=== PATIENT | female | born 1975 ===

== ENCOUNTER 2018-01-09 18:48 | Observation (INO) | payer OTHER ==
[2018-01-09] MEDS ORDERED: Piperacillin/Tazobact 3.375 GM in Sodium Chloride 0.9% 100 ML IVPB STA (19:21)
[2018-01-09] MEDS ORDERED: Morphine 4 MG/ML VIAL ONE (19:42)
--- NOTE | 2018-01-09 20:11 | ED PDOC ---
HPI: Skin/Bite Injury Time Seen by Provider: 01/09/18 19:12 Chief Complaint (Nursing): Abnormal Skin Integrity Chief Complaint (Provider): Abnormal Skin Integrity History Per: Patient History/Exam Limitations: no limitations Onset/Duration Of Symptoms: Days (x1 week) Location Of Injury: Left: Buttock, Labia Additional Complaint(s): 42 year old female with no significant past medical history presents to the ED with Bartholins cyst on left labia onset 1 week. Patient reports she is being treated by her OBGYN. She states her swelling has improved recently resolved but has now traveled to the left buttocks. Patient is taking Motrin for pain. She has chills and sweats but denies fever, history of dm, or any other medical complaints. PMD: Dr. Talley Past Medical History Reviewed: Historical Data, Nursing Documentation, Vital Signs Vital Signs: Last Vital Signs Temp 99 F 01/09/18 23:57 Pulse 109 H 01/09/18 23:57 Resp 20 01/09/18 23:57 BP 142/67 01/09/18 23:57 Pulse Ox 99 01/10/18 00:42 - Medical History PMH: No Chronic Diseases - Surgical History Surgical History: No Surg Hx - Family History Family History: States: No Known Family Hx - Home Medications Home Medications: Ambulatory Orders Medication Instructions Recorded Levothyroxine [Synthroid] 0.05 mg PO DAILY 01/09/18 methIMAzole [Tapazole] 10 mg PO BID 01/09/18 Home Med 1 unit PO DAILY 01/10/18 - Allergies Allergies/Adverse Reactions: Allergies Allergy/AdvReac Type Severity Reaction Status Date / Time No Known Allergies Allergy Unverified 01/09/18 19:08 Review of Systems ROS Statement: Except As Marked, All Systems Reviewed And Found Negative Constitutional: Positive for: Chills, Sweats. Negative for: Fever Skin: Positive for: Other (Bartholins cyst on left buttocks) Physical Exam - Reviewed Nursing Documentation Reviewed: Yes Vital Signs Reviewed: Yes - Physical Exam Appears: Positive for: No Acute Distress Head Exam: Positive for: ATRAUMATIC, NORMOCEPHALIC Skin: Positive for: Normal Color, Warm, DRY Eye Exam: Positive for: Normal appearance Cardiovascular/Chest: Positive for: Regular Rate, Rhythm. Negative for: Murmur Respiratory: Positive for: Normal Breath Sounds. Negative for: Accessory Muscle Use, Respiratory Distress Gastrointestinal/Abdominal: Positive for: Normal Exam, Soft. Negative for: Tenderness Rectal: Positive for: Other ( left anterior buttocks large fluctuated erythematous abscess not extending into rectum) Extremity: Positive for: Normal ROM (upper and lower). Negative for: Deformity Neurologic/Psych: Positive for: Alert, Oriented (x3) - Laboratory Results Result Diagrams: 01/09/18 20:24 01/09/18 20:24 - ECG O2 Sat by Pulse Oximetry: 99 (RA) Pulse Ox Interpretation: Normal Medical Decision Making Medical Decision Making: Time: 19:20 Initial Plan: --Pelvis CT --CMP --NPO diet --Urine preg --CBC with differentials --Morphine 4 mg IVP --Vancomycin --Zosyn --Zofran 4 mg IVP --Blood culture WBC: 14, Lactate 2.2. Repeat 3 hour lactate ordered. IV NS Bolus x 1 ordered. Pt.'s PMD is Dr. Shaik Garibay. Pt. evaluated by Dr. Kumar who spoke with Dr. Hutchison and made the decision to perform I&D at bedside. Agree with care and plan. Case d/w Dr. Gage, hospitalist, and arrangements made for 23 hour observation. Scribe Attestation: Documented by Fidelina Meehan, acting as a scribe for Boby Salguero PA-C. ~ Provider Scribe Attestation: All medical record entries made by the Scribe were at my direction and personally dictated by me. I have reviewed the chart and agree that the record accurately reflects my personal performance of the history, physical exam, medical decision making, and the department course for this patient. I have also personally directed, reviewed, and agree with the discharge instructions and disposition. Disposition - Clinical Impression Clinical Impression: Left buttock abscess - Patient ED Disposition Is Patient to be Admitted: Yes - Disposition Disposition Time: 23:17 Condition: STABLE
[2018-01-09] MEDS ORDERED: Vancomycin 1 g Inj ONE (20:24)
[2018-01-09] MEDS ORDERED: cefTRIAXone (Rocephin) 1 gm Inj ONE (20:24)
[2018-01-09 20:30] LABS: BASO # 0.1 K/uL (0.0-0.2); EOS # 0.3 K/uL (0.0-0.7); HEMOGLOBIN 14.1 g/dL (12.0-16.0); LYMPH # 1.7 K/uL (1.0-4.3); LYMPH % 11.9 % (20.0-40.0); MEAN CELL VOLUME 86.7 fl (81.0-99.0); MEAN CORPUSCULAR HEMOGLOBIN 28.6 pg (27.0-31.0); MEAN CORPUSCULAR HGB CONC 32.9 g/dL (33.0-37.0); MEAN PLATELET VOLUME 9.7 fl (7.2-11.7); MONO # 0.9 K/uL (0.0-0.8); MONO % 6.5 % (0.0-10.0); NEUT % 78.6 % (50.0-75.0); RBC 4.93 Mil/uL (3.80-5.20); RED CELL DISTRIBUTION WIDTH 14.5 % (11.5-14.5)
[2018-01-09] MEDS ORDERED: Iohexol 300 100 ML IJ ONE (20:32)
[2018-01-09] MEDS ORDERED: Sodium Chloride 0.9% 50 ML IV ONE (20:32)
[2018-01-09] MEDS ORDERED: Piperacillin/Tazobact 3.375 gm Inj IVPB ONE (20:34)
[2018-01-09 20:39] LABS: ALBUMIN 3.9 g/dL (3.5-5.0); ALT/SGPT 22 U/L (9-52); AST/SGOT 26 U/L (14-36); BLOOD UREA NITROGEN 7 mg/dl (7-17); CALCIUM 9.3 mg/dL (8.4-10.2); GFR AFRICAN-AMERICAN > 60; GFR NON-AFRICAN AMERICAN > 60
[2018-01-09 20:56] LABS: VENOUS BLOOD GAS BASE EXCESS 1.3 mmol/L (0.0-2.0); VENOUS BLOOD GAS PCO2 40 mmHg (40-60); VENOUS BLOOD GAS PO2 39 mm/Hg (30-55); VENOUS BLOOD PH 7.42 (7.32-7.43)
[2018-01-09] MEDS ORDERED: Sodium Chloride 0.9% 1,000 ML IV STA (21:02)
[2018-01-09] MEDS ORDERED: Lidocaine 1% w Epi 1:100,000 Inj ONE (22:33)
--- NOTE | 2018-01-09 23:18 | CP.PCM.CON ---
History of Present Illness - History of Present Illness History of Present Illness: General Surgery - Dr. Hutchison 42 yo F w/ hx of hidradenitis and Bartholin cyst presents w/ left labial abscess x 1 week. Pt states she saw her OBGYN for this approx 1 week ago and was told to continue warm compresses to the area, however it gradually became larger in size and migrated towards her rectum. Pt complains of pain and swelling to the posterior aspect of the Left labia, with associated redness, no drainage. Pt denies any Fevers/Chills, SOb/chest pain, Constipation, Diarrhea, Dysuria, Hematuria. PMH; Hidradenitis, Bartholin cyst PSH; I&D NKDA Review of Systems - Review of Systems All systems: reviewed and no additional remarkable complaints except (as per hpi ) Past Patient History - Past Social History Smoking Status: Never Smoked - ENDOCRINE/METABOLIC Hx Hypothyroidism: Yes - PSYCHIATRIC Hx Substance Use: No Meds Allergies/Adverse Reactions: Allergies Allergy/AdvReac Type Severity Reaction Status Date / Time No Known Allergies Allergy Unverified 01/09/18 19:08 Physical Exam - Constitutional Appears: No Acute Distress - Head Exam Head Exam: ATRAUMATIC, NORMAL INSPECTION, NORMOCEPHALIC - Eye Exam Eye Exam: Normal appearance - ENT Exam ENT Exam: Mucous Membranes Moist - Respiratory Exam Respiratory Exam: NORMAL BREATHING PATTERN. absent: Respiratory Distress - Cardiovascular Exam Cardiovascular Exam: REGULAR RHYTHM - Rectal Exam Rectal Exam: NORMAL INSPECTION - Exam Additional comments: Large left labial abscess with central fluctuance and surrounding mild erythema and induration - Neurological Exam Neurological exam: Alert, Oriented x3 - Psychiatric Exam Psychiatric exam: Normal Affect, Normal Mood - Skin Skin Exam: Dry, Intact Results - Vital Signs Recent Vital Signs: Last Vital Signs Temp 98.6 F 01/09/18 19:08 Pulse 109 H 01/09/18 19:08 Resp 20 01/09/18 19:08 BP 142/67 01/09/18 19:08 Pulse Ox 99 01/09/18 20:14 - Labs Result Diagrams: 01/09/18 20:24 01/09/18 20:24 Labs: Laboratory Results - last 24 hr 01/09/18 01/09/18 01/09/18 20:24 20:24 20:53 WBC 14.0 H RBC 4.93 Hgb 14.1 Hct 42.8 MCV 86.7 MCH 28.6 MCHC 32.9 L RDW 14.5 Plt Count 251 MPV 9.7 Neut % (Auto) 78.6 H Lymph % (Auto) 11.9 L Grayson % (Auto) 6.5 Eos % (Auto) 2.0 Baso % (Auto) 1.0 Neut # (Auto) 11.0 H Lymph # (Auto) 1.7 Grayson # (Auto) 0.9 H Eos # (Auto) 0.3 Baso # (Auto) 0.1 pO2 39 VBG pH 7.42 VBG pCO2 40 VBG HCO3 25.3 VBG Total CO2 27.1 VBG O2 Sat (Calc) 76.1 H VBG Base Excess 1.3 VBG Potassium 3.9 Glucose 156 H Lactate 2.2 H FiO2 21.0 Sodium 141 137.0 Potassium 3.9 Chloride 105 104.0 Carbon Dioxide 25 Anion Gap 15 BUN 7 Creatinine 0.5 L Est GFR ( Amer) > 60 Est GFR (Non-Af Amer) > 60 Random Glucose 148 H Calcium 9.3 Total Bilirubin 0.4 AST 26 ALT 22 Alkaline Phosphatase 114 Total Protein 7.6 Albumin 3.9 Globulin 3.8 Albumin/Globulin Ratio 1.0 Venous Blood Potassium 3.9 Assessment & Plan - Assessment and Plan (Free Text) Assessment: 42 yo F w left labial abscess -Bedside I&D -F/U cultures -Continue Abx -Resume diet Dr Foster Kumar PGY4 - Incision & Drainage Of Abscess Anesthesia: Lidocaine 1%, With Epi Prep Used: Betadine Procedure: Incised W/Scalpel Blade#: (11), Drained Pus, Probed To Break Up Loculations, Packed W/Gauze, Cultures Obtained And Sent To Lab (Informed consent obtained prior to the procedure. Pt tolerated well with no complications)
[2018-01-10 00:28] LABS: VENOUS BLOOD GAS BASE EXCESS -0.5 mmol/L (0.0-2.0); VENOUS BLOOD GAS PCO2 39 mmHg (40-60); VENOUS BLOOD GAS PO2 33 mm/Hg (30-55)
[2018-01-10] MEDS ORDERED: Sodium Chloride 0.9% 1,000 ML IV SCH (04:45)
[2018-01-10] MEDS ORDERED: Vancomycin 1.5 GM in Sodium Chloride 0.9% 500 ML IVPB SCH ×2 (04:45→10:00)
[2018-01-10] MEDS ORDERED: Vancomycin 500 mg Inj IVPB SCH (04:45)
--- NOTE | 2018-01-10 05:23 | CP.PCM.HP ---
History of Present Illness - History of Present Illness History of Present Illness: 42 yo F w/ hx of obesity, hidradenitis and Bartholin cyst presents w/ left labial abscess x 1 week. Pt states she was treated and it went away by continuing warm compresses to the area. The lesion she thinks migrated towards her rectum and became larger and more painful. Pt complains of pain and swelling to the posterior aspect of the Left labia, with associated redness, no drainage. Pt has + Fevers/Chills, denies SOb/chest pain, Constipation, Diarrhea , Dysuria, Hematuria. Surgery saw the patient in the ED and did I & D. 14 ROS all negative except pain at the site of I &D Allergies: NKDA PMH; Hidradenitis, Bartholin cyst PSH : 2 C section & I &D Family: non contributary Present on Admission - Present on Admission Any Indicators Present on Admission: No History of DVT/PE: No History of Uncontrolled Diabetes: No Urinary Catheter: No Decubitus Ulcer Present: No Review of Systems - Constitutional Constitutional: Chills, Fever - EENT Eyes: absent: As Per HPI, Blind Spots, Blurred Vision, Change in Vision, Decreased Night Vision, Diplopia, Discharge, Dry Eye, Exophthalmos, Floaters, Irritation, Itchy Eyes, Loss of Peripheral Vision, Pain, Photophobia, Requires Corrective Lenses, Sees Flashes, Spots in Vision, Tunnel Vision, Other Visual Disturbances, Loss of Vision, Other Ears: absent: As Per HPI, Decreased Hearing, Ear Discharge, Ear Pain, Tinnitus, Abnormal Hearing, Disequilibrium, Dizziness, Other Nose/Mouth/Throat: absent: As Per HPI, Epistaxis, Nasal Congestion, Nasal Discharge, Nasal Obstruction, Nasal Trauma, Nose Pain, Post Nasal Drip, Sinus Pain, Sinus Pressure, Bleeding Gums, Change in Voice, Dental Pain, Dry Mouth, Dysphagia, Halitosis, Hoarsness, Lip Swelling, Mouth Lesions, Mouth Pain, Odynophagia, Sore Throat, Throat Swelling, Tongue Swelling, Facial Pain, Neck Pain, Neck Mass, Other - Breasts Breasts: absent: As Per HPI, Change in Shape, Mass, Pain, Nipple Discharge, Nipple Inversion, Skin Changes, Swelling, Other - Cardiovascular Cardiovascular: absent: As Per HPI, Acrocyanosis, Chest Pain, Chest Pain at Rest , Chest Pain with Activity, Claudication, Diaphoresis, Dyspnea, Dyspnea on Exertion, Edema, Irregular Heart Rhythm, Pain Radiating to Arm/Neck/Jaw, Leg Edema, Leg Ulcers, Lightheadedness, Orthopnea, Palpitations, Paroxysmal Nocturnal Dyspnea, Pedal Edema, Radiating Pain, Rapid Heart Rate, Slow Heart Rate, Syncope, Other - Respiratory Respiratory: absent: As Per HPI, Cough, Dyspnea, Hemoptysis, Dyspnea on Exertion , Wheezing, Snoring, Stridor, Pain on Inspiration, Chest Congestion, Excessive Mucous Production, Change in Mucous Color, Pain with Coughing, Other - Gastrointestinal Gastrointestinal: absent: As Per HPI, Abdominal Pain, Belching, Bloating, Change in Bowel Habits, Change in Stool Character, Coffee Ground Emesis, Constipation, Cramping, Diarrhea, Dyspepsia, Dysphagia, Early Satiety, Excessive Flatus, Fecal Incontinence, Heartburn, Hematemesis, Hematochezia, Loose Stools, Melena, Nausea, Odynophagia, Temesmus, Vomiting, Other - Genitourinary Genitourinary: absent: As Per HPI, Change in Urinary Stream, Difficulty Urinating, Dysuria, Flank Pain, Hematuria, Pyuria, Nocturia, Urinary Incontinence, Urinary Frequency, Urinary Hesitance, Urinary Urgency, Voiding Freq/Small Amts, Freq UTI, Hx Renal/Bladder Calculi, Hx /Renal Surgery, Bladder Distension, Other - Reproductive: Female Reproductive:Female: absent: As Per HPI, Amenorrhea, Amenorrhea/ Control, Currently Menstual, Cycle <21 Days, Cycle >35 Days, Cycle Variable, Menses 1-7 Days, Menses >/= 8 Days, Menses Variable, Cycle > 4 Weeks Between, No Menses for 6 Months, Heavy Menses, Light Menses, Normal Menses, Spotting Between Cycles , S/P Hysterectomy, Menopausal, Post Menopausal, Premenarche, Abnormal Vaginal Bleeding, Dysmenorrhea, Dyspareunia, Genital Lesions, Genital Pruritis, Pelvic Pain, Prolapse Symptoms, Sexual Dysfunction, Vaginal Discharge, Vaginal Dryness , Vaginal Odor, Vaginal Pruritis, Other - Menstruation Menstruation: absent: As Per HPI, Amenorrhea, Amenorrhea/ Control, Currently Menstual, Cycle <21 Days, Cycle >35 Days, Cycle Variable, Menses 1-7 Days, Menses >/= 8 Days, Menses Variable, Cycle > 4 Weeks Between, No Menses for 6 Months, Heavy Menses, Light Menses, Normal Menses, Spotting Between Cycles , S/P Hysterectomy, Menopausal, Post Menopausal, Premenarche, Abnormal Vaginal Bleeding, Dysmenorrhea, Other - Musculoskeletal Musculoskeletal: absent: As Per HPI, Abnormal Gait, Arthralgias, Atrophy, Back Pain, Deformity, Joint Swelling, Limited Range of Motion, Loss of Height, Muscle Cramps, Muscle Weakness, Myalgias, Neck Pain, Numbness, Radiating Pain into Limb, Stiffness, Tingling, Other - Integumentary Integumentary: absent: As Per HPI, Acne, Alopecia, Bleeding Lesions, Change in Hair, Change in Nails, Change in Pigmentation, Changing Lesions, Dry Skin, Erythema, Furuncle, Hirsutism, Lesions, New Lesions, Non-Healing Lesions, Photosensitivity, Pruritus, Rash, Skin Pain, Skin Ulcer, Sores, Striae, Swelling , Unusual Bruising, Wounds, Jaundice, Other - Neurological Neurological: absent: As Per HPI, Abnormal Gait, Abnormal Hearing, Abnormal Movements, Abnormal Speech, Behavioral Changes, Burning Sensations, Confusion, Convulsions, Disequilibrium, Dizziness, Numbness, Focal Weakness, Frequent Falls , Headaches, Lack of Coordination, Loss of Vision, Memory Loss, Paresthesias, Radicular Pain, Restless Legs, Sensory Deficit, Syncope, Tingling, Tremor, Vertigo, Weakness, Other Visual Disturbances, Other - Psychiatric Psychiatric: absent: As Per HPI, Abnormal Sleep Pattern, Anhedonia, Anxiety, Auditory Hallucinations, Behavioral Changes, Change in Appetite, Change in Libido, Confusion, Depression, Difficulty Concentrating, Hallucinations, Homicidal Ideation, Hopelessness, Irritability, Memory Loss, Mood Swings, Panic Attacks, Paranoia, Suicidal Ideation, Visual Hallucinations, Tactile Hallucinations, Other - Endocrine Endocrine: absent: As Per HPI, Change in Body Appearance, Change in Libido, Cold Intolorance, Deepening of Voice, Excessive Sweating, Fatigue, Flushing, Heat Intolorance, Increase in Ring/Shoe/Hat Size, Palpitations, Polydipsia, Polyphagia, Polyuria, Other Past Patient History - Infectious Disease Hx of Infectious Diseases: None - Tetanus Immunizations Tetanus Immunization: Unknown - Past Medical History & Family History Past Medical History?: Yes - Past Social History Smoking Status: Light Smoker < 10 Cigarettes Daily Chewing Tobacco Use: No Cigar Use: No - CARDIAC Hx Cardiac Disorders: No - PULMONARY Hx Respiratory Disorders: No - NEUROLOGICAL Hx Neurological Disorder: No - HEENT Hx HEENT Problems: No - RENAL Hx Chronic Kidney Disease: No - ENDOCRINE/METABOLIC Hx Endocrine Disorders: Yes (hypothyroid) Hx Hypothyroidism: Yes - HEMATOLOGICAL/ONCOLOGICAL Hx AIDS: No Hx Human Immunodeficiency Virus (HIV): No - INTEGUMENTARY Other/Comment: hydradenitis ,bartholin cyst - MUSCULOSKELETAL/RHEUMATOLOGICAL Hx Musculoskeletal Disorders: No Hx Falls: No - GASTROINTESTINAL Hx Gastrointestinal Disorders: No - GENITOURINARY/GYNECOLOGICAL Hx Genitourinary Disorders: No - PSYCHIATRIC Hx Psychophysiologic Disorder: No Hx Substance Use: No - SURGICAL HISTORY Hx Section: Yes (x2) - ANESTHESIA Hx Anesthesia: Yes Hx Anesthesia Reactions: No Meds Allergies/Adverse Reactions: Allergies Allergy/AdvReac Type Severity Reaction Status Date / Time No Known Allergies Allergy Unverified 01/09/18 19:08 Physical Exam - Constitutional Appears: Well - Head Exam Head Exam: ATRAUMATIC, NORMAL INSPECTION, NORMOCEPHALIC - Eye Exam Eye Exam: EOMI, Normal appearance, PERRL Pupil Exam: NORMAL ACCOMODATION - ENT Exam ENT Exam: Mucous Membranes Moist, Normal Exam - Neck Exam Neck exam: Positive for: Normal Inspection - Respiratory Exam Respiratory Exam: Clear to Auscultation Bilateral, NORMAL BREATHING PATTERN - Cardiovascular Exam Cardiovascular Exam: REGULAR RHYTHM, +S1, +S2 - GI/Abdominal Exam GI & Abdominal Exam: Normal Bowel Sounds Results - Vital Signs Recent Vital Signs: Last Vital Signs Temp 97.8 F 01/10/18 00:50 Pulse 80 01/10/18 00:50 Resp 19 01/10/18 00:50 BP 120/80 01/10/18 00:50 Pulse Ox 98 01/10/18 00:50 - Labs Result Diagrams: 01/09/18 20:24 01/09/18 20:24 Labs: Laboratory Results - last 24 hr 01/09/18 01/09/18 01/09/18 20:24 20:24 20:53 WBC 14.0 H RBC 4.93 Hgb 14.1 Hct 42.8 MCV 86.7 MCH 28.6 MCHC 32.9 L RDW 14.5 Plt Count 251 MPV 9.7 Neut % (Auto) 78.6 H Lymph % (Auto) 11.9 L Snyder % (Auto) 6.5 Eos % (Auto) 2.0 Baso % (Auto) 1.0 Neut # (Auto) 11.0 H Lymph # (Auto) 1.7 Snyder # (Auto) 0.9 H Eos # (Auto) 0.3 Baso # (Auto) 0.1 pO2 39 VBG pH 7.42 VBG pCO2 40 VBG HCO3 25.3 VBG Total CO2 27.1 VBG O2 Sat (Calc) 76.1 H VBG Base Excess 1.3 VBG Potassium 3.9 Glucose 156 H Lactate 2.2 H FiO2 21.0 Sodium 141 137.0 Potassium 3.9 Chloride 105 104.0 Carbon Dioxide 25 Anion Gap 15 BUN 7 Creatinine 0.5 L Est GFR ( Amer) > 60 Est GFR (Non-Af Amer) > 60 Random Glucose 148 H Calcium 9.3 Total Bilirubin 0.4 AST 26 ALT 22 Alkaline Phosphatase 114 Total Protein 7.6 Albumin 3.9 Globulin 3.8 Albumin/Globulin Ratio 1.0 Venous Blood Potassium 3.9 01/10/18 00:24 WBC RBC Hgb Hct MCV MCH MCHC RDW Plt Count MPV Neut % (Auto) Lymph % (Auto) Snyder % (Auto) Eos % (Auto) Baso % (Auto) Neut # (Auto) Lymph # (Auto) Snyder # (Auto) Eos # (Auto) Baso # (Auto) pO2 33 VBG pH 7.40 VBG pCO2 39 L VBG HCO3 23.6 VBG Total CO2 25.4 VBG O2 Sat (Calc) 63.5 VBG Base Excess -0.5 L VBG Potassium 4.1 Glucose 81 Lactate 1.0 FiO2 21.0 Sodium 139.0 Potassium Chloride 108.0 H Carbon Dioxide Anion Gap BUN Creatinine Est GFR ( Amer) Est GFR (Non-Af Amer) Random Glucose Calcium Total Bilirubin AST ALT Alkaline Phosphatase Total Protein Albumin Globulin Albumin/Globulin Ratio Venous Blood Potassium 4.1 Assessment & Plan - Assessment and Plan (Free Text) Assessment: PT is an obese female with pmhx of hyperthyroidism, and a Bartholin gland cyst which became infected and seemed to have spread or localized on the left "butt cheek". PT wound is covered by dressing. Plan: 1) Left Butt Cheek Abscess s/p I &D - surgery resident product introduction manager saw the patient and did procedure - c/w cefipime and vanco for skin soft tissue infection - iv fluids at 100 cc/hr - pain control as per protocol - gi and dvt prophylaxis 2) Obesity thyroid panel and lipid panel 3) hyperthryoidism - c/w methimazole - Date & Time Date: 01/10/18 Time: 05:32
--- NOTE | 2018-01-10 07:25 | CP.PCM.PN ---
Subjective - Date & Time of Evaluation Date of Evaluation: 01/10/18 Time of Evaluation: 07:23 - Subjective Subjective: General Surgery Dr. Hutchison Pt S&E @bedside. NAEO. pain much improved. c/o insomnia 2/2 heat intolerance. denies F/C, N/V. tolerating diet. Objective - Vital Signs/Intake and Output Vital Signs (last 24 hours): Temp Pulse Resp BP Pulse Ox 97.8 F 80 19 120/80 98 01/10/18 00:50 01/10/18 00:50 01/10/18 00:50 01/10/18 00:50 01/10/18 00:50 - Medications Medications: Current Medications Enoxaparin Sodium (Lovenox) 40 mg SC DAILY ANNA PRN Reason: Protocol Famotidine (Pepcid) 20 mg IVP DAILY COUNTS INCLUDE 234 BEDS AT THE [facility] Sodium Chloride (Sodium Chloride 0.9%) 1,000 mls @ 100 mls/hr IV .Q10H ANNA Stop: 01/11/18 04:34 Last Admin: 01/10/18 05:00 Dose: 100 mls/hr Cefepime HCl 2 gm/ Sodium (Chloride) 100 mls @ 100 mls/hr IVPB Q12 ANNA PRN Reason: Protocol Vancomycin HCl 1.5 gm/ Sodium (Chloride) 500 mls @ 333.333 mls/hr IVPB Q12@1000 ,2200 ANNA Ibuprofen (Motrin Tab) 600 mg PO Q8 PRN PRN Reason: Pain, moderate (4-7) Morphine Sulfate (Morphine) 2 mg IVP Q6 PRN PRN Reason: Pain, severe (8-10) Last Admin: 01/10/18 04:54 Dose: 2 mg - Labs Labs: 01/09/18 20:24 01/09/18 20:24 - Constitutional Appears: Non-toxic, No Acute Distress - Head Exam Head Exam: NORMAL INSPECTION - Eye Exam Eye Exam: Normal appearance - ENT Exam ENT Exam: Mucous Membranes Moist - Respiratory Exam Respiratory Exam: absent: Accessory Muscle Use, Respiratory Distress - Cardiovascular Exam Cardiovascular Exam: REGULAR RHYTHM. absent: Bradycardia, Tachycardia - GI/Abdominal Exam GI & Abdominal Exam: Soft. absent: Distended, Guarding, Tenderness, Rebound - Exam Additional comments: packing in drained L labial abscess w/ mild surrounding induration. no palpable fluctuance. no surrounding erythema. - Extremities Exam Extremities Exam: Normal Inspection - Neurological Exam Neurological Exam: Alert, Awake, Oriented x3 - Psychiatric Exam Psychiatric exam: Normal Affect, Normal Mood - Skin Skin Exam: Dry, Intact, Normal Color, Warm Assessment and Plan - Assessment and Plan (Free Text) Assessment: 42 y/o F w/ L labial abscess s/p bedside I&D w/ packing placement - ADAT - cont Abx - f/u Cx - cont pain management - pt cleared for discharge from surgical standpoint - packing to be removed prior to discharge Pt discussed w/ Dr. Foster Green DO PGY3
[2018-01-10 07:40] LABS: BASO % 0.3 % (0.0-2.0); EOS # 0.4 K/uL (0.0-0.7); EOS % 3.3 % (0.0-4.0); HEMOGLOBIN 13.2 g/dL (12.0-16.0); LYMPH # 2.7 K/uL (1.0-4.3); LYMPH % 19.5 % (20.0-40.0); MEAN CELL VOLUME 86.2 fl (81.0-99.0); MEAN CORPUSCULAR HEMOGLOBIN 28.9 pg (27.0-31.0); MEAN CORPUSCULAR HGB CONC 33.5 g/dL (33.0-37.0); MEAN PLATELET VOLUME 9.5 fl (7.2-11.7); MONO % 7.1 % (0.0-10.0); NEUT # 9.5 K/uL (1.8-7.0); NEUT % 69.8 % (50.0-75.0); RBC 4.55 Mil/uL (3.80-5.20); RED CELL DISTRIBUTION WIDTH 14.6 % (11.5-14.5); WHITE BLOOD COUNT 13.6 K/uL (4.8-10.8)
[2018-01-10 08:21] VITALS: O2SAT 97
[2018-01-10] MEDS ORDERED: Enoxaparin 40 mg Syringe SC SCH (09:00)
[2018-01-10] MEDS ORDERED: Cefepime 2 GM in Sodium Chloride 0.9% 100 ML IVPB SCH (09:00)
--- NOTE | 2018-01-10 10:43 | CP.PCM.PN ---
Subjective - Date & Time of Evaluation Date of Evaluation: 01/10/18 Time of Evaluation: 10:37 - Subjective Subjective: General Surgery Pt seen and examined this AM. She reports feeling significantly better after I& D last night. Afebrile. (-) chills Labs and vitals noted. WBC improving from 14 to 13.6. PE Gen: pt laying in bed in NAD Skin: warm and dry Cardio: s1s2 RRR Lungs: CTA bilaterally Abd: soft NTND : (+) packed wound of left buttock, (-) surrounding erythema (-) induration Extr: (-) calf tenderness bilaterally A/P Left buttock abscess POD 1 s/p I&D Packing removed Dry gauze dressing applied Pt to do sitz baths at home F/U prn with Dr. Hutchison in 1-2 weeks Continue antibiotics per medicine Objective - Vital Signs/Intake and Output Vital Signs (last 24 hours): Temp Pulse Resp BP Pulse Ox 97.8 F 76 20 96/61 L 97 01/10/18 08:21 01/10/18 08:21 01/10/18 08:21 01/10/18 08:21 01/10/18 08:21 - Medications Medications: Current Medications Enoxaparin Sodium (Lovenox) 40 mg SC DAILY ANNA PRN Reason: Protocol Last Admin: 01/10/18 09:00 Dose: Not Given Famotidine (Pepcid) 20 mg IVP DAILY [facility] Last Admin: 01/10/18 09:00 Dose: 20 mg Sodium Chloride (Sodium Chloride 0.9%) 1,000 mls @ 100 mls/hr IV .Q10H [facility] Stop: 01/11/18 04:34 Last Admin: 01/10/18 05:00 Dose: 100 mls/hr Cefepime HCl 2 gm/ Sodium (Chloride) 100 mls @ 100 mls/hr IVPB Q12 ANNA PRN Reason: Protocol Last Admin: 01/10/18 08:59 Dose: 100 mls/hr Vancomycin HCl 1.5 gm/ Sodium (Chloride) 500 mls @ 333.333 mls/hr IVPB Q12@1000 ,2200 ANNA Last Admin: 01/10/18 08:59 Dose: 333.333 mls/hr Ibuprofen (Motrin Tab) 600 mg PO Q8 PRN PRN Reason: Pain, moderate (4-7) Last Admin: 01/10/18 08:58 Dose: 600 mg Morphine Sulfate (Morphine) 2 mg IVP Q6 PRN PRN Reason: Pain, severe (8-10) Last Admin: 01/10/18 04:54 Dose: 2 mg - Labs Labs: 01/10/18 06:54 01/09/18 20:24
--- NOTE | 2018-01-10 10:53 | CT ---
Date of service: 01/09/2018 PROCEDURE: CT Pelvis with contrast HISTORY: L sided buttock abscess COMPARISON: None. TECHNIQUE: Contiguous axial images of the pelvis with contrast. Coronal and sagittal reformats generated. Contrast dose: 95 cc Omnipaque 300 Radiation dose: Total exam DLP = 788.03 mGy-cm. This CT exam was performed using one or more of the following dose reduction techniques: Automated exposure control, adjustment of the mA and/or kV according to patient size, and/or use of iterative reconstruction technique. FINDINGS: BLADDER: Unremarkable. No mass. REPRODUCTIVE ORGANS: Unremarkable. VISUALIZED BOWEL: Unremarkable. PERITONEUM: Unremarkable, as visualized. No free fluid. No free air. LYMPH NODES: Unremarkable. No enlarged lymph nodes. VASCULATURE: Unremarkable. BONES: No fracture or focal lesion. OTHER FINDINGS: Multiloculated perineal and left medial thigh/gluteal abscess. The 2 well defined perineal components measured 2.1 x 2.3 cm and 1.7 x 1.6 cm. The more phlegmonous medial thigh and gluteal component measures 3.5 x 7.1 cm. No sinus tract or fistulous communication with pelvic structures. IMPRESSION: Multifocal perineal) the medial left thigh abscess. No intraperitoneal component identified. No evidence of sinus tract or fistulous communication. Concordant results (preliminary interpretation) provided by [employer]. Procedure Completed: 21:13. Preliminary ([facility]) Report: Dictated and Authenticated: 22:35. Final Interpretation: 10:52. January 10, 2018.
[2018-01-10] MEDS ORDERED: Lidocaine Hydrochloride 1% 10 ML ONE (13:46)
[2018-01-10 16:22] VITALS: BP 104/69; PULSE 64; RESP 18; TEMP 98.5
--- NOTE | 2018-01-10 18:07 | CP.PCM.DIS ---
Provider - Provider Date of Admission: 01/09/18 23:17 Attending physician: David Gage MD Primary care physician: Dr Talley Consults: Surgery: Dr Hutchison Time Spent in preparation of Discharge (in minutes): 25 Diagnosis - Discharge Diagnosis (1) Left buttock abscess Status: Acute Hospital Course - Lab Results Lab Results: Micro Results 01/09/18 23:30 Abscess - Buttock-Left Gram Stain - Preliminary Most Recent Lab Values WBC 13.6 K/uL (4.8-10.8) H 01/10/18 06:54 RBC 4.55 Mil/uL (3.80-5.20) 01/10/18 06:54 Hgb 13.2 g/dL (12.0-16.0) 01/10/18 06:54 Hct 39.2 % (34.0-47.0) 01/10/18 06:54 MCV 86.2 fl (81.0-99.0) 01/10/18 06:54 MCH 28.9 pg (27.0-31.0) 01/10/18 06:54 MCHC 33.5 g/dL (33.0-37.0) 01/10/18 06:54 RDW 14.6 % (11.5-14.5) H 01/10/18 06:54 Plt Count 240 K/uL (130-400) 01/10/18 06:54 MPV 9.5 fl (7.2-11.7) 01/10/18 06:54 Neut % (Auto) 69.8 % (50.0-75.0) 01/10/18 06:54 Lymph % (Auto) 19.5 % (20.0-40.0) L 01/10/18 06:54 [place] % (Auto) 7.1 % (0.0-10.0) 01/10/18 06:54 Eos % (Auto) 3.3 % (0.0-4.0) 01/10/18 06:54 Baso % (Auto) 0.3 % (0.0-2.0) 01/10/18 06:54 Neut # (Auto) 9.5 K/uL (1.8-7.0) H 01/10/18 06:54 Lymph # (Auto) 2.7 K/uL (1.0-4.3) 01/10/18 06:54 [place] # (Auto) 1.0 K/uL (0.0-0.8) H 01/10/18 06:54 Eos # (Auto) 0.4 K/uL (0.0-0.7) 01/10/18 06:54 Baso # (Auto) 0.0 K/uL (0.0-0.2) 01/10/18 06:54 pO2 33 mm/Hg (30-55) 01/10/18 00:24 VBG pH 7.40 (7.32-7.43) 01/10/18 00:24 VBG pCO2 39 mmHg (40-60) L 01/10/18 00:24 VBG HCO3 23.6 mmol/L 01/10/18 00:24 VBG Total CO2 25.4 mmol/L (22-28) 01/10/18 00:24 VBG O2 Sat (Calc) 63.5 % (40-65) 01/10/18 00:24 VBG Base Excess -0.5 mmol/L (0.0-2.0) L 01/10/18 00:24 VBG Potassium 4.1 mmol/L (3.6-5.2) 01/10/18 00:24 Sodium 139.0 mmol/L (132-148) 01/10/18 00:24 Chloride 108.0 mmol/L (98-107) H 01/10/18 00:24 Glucose 81 mg/dL (65-105) 01/10/18 00:24 Lactate 1.0 mmol/L (0.7-2.1) 01/10/18 00:24 FiO2 21.0 % 01/10/18 00:24 Sodium 141 mmol/l (132-148) 01/09/18 20:24 Potassium 3.9 MMOL/L (3.6-5.0) 01/09/18 20:24 Chloride 105 mmol/L (98-107) 01/09/18 20:24 Carbon Dioxide 25 mmol/L (22-30) 01/09/18 20:24 Anion Gap 15 (10-20) 01/09/18 20:24 BUN 7 mg/dl (7-17) 01/09/18 20:24 Creatinine 0.5 mg/dl (0.7-1.2) L 01/09/18 20:24 Est GFR ( Amer) > 60 01/09/18 20:24 Est GFR (Non-Af Amer) > 60 01/09/18 20:24 Random Glucose 148 mg/dL (65-105) H 01/09/18 20:24 Calcium 9.3 mg/dL (8.4-10.2) 01/09/18 20:24 Total Bilirubin 0.4 mg/dl (0.2-1.3) 01/09/18 20:24 AST 26 U/L (14-36) 01/09/18 20:24 ALT 22 U/L (9-52) 01/09/18 20:24 Alkaline Phosphatase 114 U/L (38-126) 01/09/18 20:24 Total Protein 7.6 G/DL (6.3-8.2) 01/09/18 20:24 Albumin 3.9 g/dL (3.5-5.0) 01/09/18 20:24 Globulin 3.8 gm/dL (2.2-3.9) 01/09/18 20:24 Albumin/Globulin Ratio 1.0 (1.0-2.1) 01/09/18 20:24 Triglycerides 75 mg/DL (0-149) 01/10/18 06:54 Cholesterol 132 mg/dL (0-199) 01/10/18 06:54 LDL Cholesterol Direct 80 mg/dL (0-129) 01/10/18 06:54 HDL Cholesterol 30 MG/DL (30-70) 01/10/18 06:54 Free T4 0.76 ng/dL (0.78-2.19) L 01/10/18 06:54 TSH 3rd Generation 2.68 mIU/ML (0.46-4.68) 01/10/18 06:54 Venous Blood Potassium 4.1 mmol/L (3.6-5.2) 01/10/18 00:24 - Hospital Course Hospital Course: 42 y/o lady with hx of Thyroid Dis, came because of a tender left buttock abscess. Pelvic CT: Multiloculated perineal and left medial thigh/gluteal abscess. The 2 well defined perineal components measured 2.1 x 2.3 cm and 1.7 x 1.6 cm. The more phlegmonous medial thigh and gluteal component measures 3.5 x 7.1 cm. No sinus tract or fistulous communication with pelvic structures. A/P : 1. Left Gluteal Abscess s/p Incision and Drainage - Pt refused to stay for further Inpatient IV antibiotics despite explanation of advantages -she is afebrile, leukocytosis sl better, Lactic acid now normal - Pt received IV Zosyn and Vanco - rx for PO Augmentin and Bactrim given - Wound c/s : pending- pt to ff up with her PMD for results - ff up with Dr Hutchison next wk. 2. History of Thyroid Dis - unclear if pt is Hypo or Hyper thyroid pt is both on Methimazole and Levothyroxine advised pt to see PMD yas regarding this Pt was discharged home. Refused to stay in the hospital for 1 more day of IV antibiotics. Discharge Exam - Head Exam Head Exam: ATRAUMATIC, NORMAL INSPECTION, NORMOCEPHALIC - Eye Exam Eye Exam: EOMI, Normal appearance, PERRL Pupil Exam: NORMAL ACCOMODATION - ENT Exam ENT Exam: Mucous Membranes Moist, Normal External Ear Exam - Neck Exam Neck exam: Full Rom - Respiratory Exam Respiratory Exam: NORMAL BREATHING PATTERN. absent: Respiratory Distress - Cardiovascular Exam Cardiovascular Exam: REGULAR RHYTHM, +S1, +S2 - GI/Abdominal Exam GI & Abdominal Exam: Normal Bowel Sounds, Soft. absent: Tenderness - Extremities Exam Extremities exam: full ROM, normal capillary refill, pedal pulses present - Back Exam Back exam: FULL ROM. absent: CVA tenderness (L), CVA tenderness (R) - Neurological Exam Neurological exam: Alert, Normal Gait, Oriented x3, Reflexes Normal - Psychiatric Exam Psychiatric exam: Normal Affect, Normal Mood - Skin Skin Exam: Dry, Normal Color, Warm Discharge Plan - Discharge Medications Prescriptions: Amoxicillin/Clavulanate [Augmentin 875 MG-125 MG] 1 tab PO BID #20 tab Sulfamethoxazole/Trimethoprim [Bactrim DS 800 mg-160 mg] 1 tab PO BID #20 tab - Follow Up Plan Condition: IMPROVED Disposition: HOME/ ROUTINE Instructions: Abscess Incision and Drainage (DC), How to Do a Sitz Bath Additional Instructions: appt with Dr Gerri sorenson appt with Dr Hutchison in 1 wk follow up Wound c/s results with PMD Sitz bath at home Referrals: Ian Muhammad [Family Provider] - Shaik Talley MD [Medical Doctor] - Bill Hutchison MD [Staff Provider] -
== END 2018-01-10 17:00 | disposition home or self-care (01) ==
LOC: H.ER 18:48 → INTOOBSV 23:17 → H.ERHOLD 23:17 → H.MEDSURG1 01-10 00:48
PROVIDERS: ADMIT Internal Medicine; ATTEND Internal Medicine
DX: L02.31 Cutaneous abscess of buttock (principal); E03.9 Hypothyroidism, unspecified; E66.9 Obesity, unspecified; G47.00 Insomnia, unspecified
CPT/HCPCS: 10060; 36415; 72193; 80053; 80061; 81025; 82803; 84439; 84443; 85025; 87040; 87070; 87206; 96365; 96372; 96374; 96375; 99284; G0378; J0692; J2270; J2405; J2543; J7030; J7040; Q9967